=== PATIENT | female | born 1990 | race African-American/Black ===

== ENCOUNTER 2017-04-22 12:21 | Inpatient (IN) | payer OTHER ==
[~2017-04-22] VITALS: Ht 177.8 cm; Wt 97.1 kg
[~2017-04-22 12:21] MED LIST: ALBUTEROL INH; AMITRIPTYLINE H50 M2 PO; AZITHROMYCIN 2250 MG PO; AZITHROMYCIN500 MG PO; CLARITIN10 MG PO; CLEOCIN HCL150 MG PO; COMPACT COMPRE1 EACH MC; DAZIDOX20 MG PO; DOXYCYCLINE 10100 MG PO; DUONEB 2.5-0.5 M3 ML INH; FENTANYL PATCH75 MCG TP; HYDREA PO; HYDREA500 MG PO; INVANZ1 GM IV; KEFLEX500 MG PO; MEROPENEM IV; METHADONE HCL 110 M1 PO; MIRALAX17 GM PO; NORCO 10-325 T1 EACH PO; OXYCODONE HCL10 M1 PO; OXYCODONE HCL15 MG PO; OXYCONTIN20 M1 PO; PERCOCET 5-3251 EACH PO; PROTONIX40 MG PO; PROVENTIL HFA6.7 G1 INH; ZANTAC 150MG T150 MG PO; ZANTAC PO; ZOFRAN ODT4 MG DISSOLVE; ZPAK PO
[2017-04-22 12:23] VITALS: BP 130/83
[2017-04-22 13:26] LABS: ABSOLUTE RETIC COUNT 0.3012 10^6/uL; HEMATOCRIT 20.2 % (37.0-47.0); HEMOGLOBIN 7.2 gm/dL (12.0-15.0); MCH 31.9 pg (26.0-34.0); MCHC 35.9 g/dL (28.0-37.0); MCV 88.8 fL (80.0-100.0); OBSERVED RETIC COUNT 13.25 % (0.6-2.6); PLATELET COUNT 624 thou/uL (150-400); RBC 2.27 mil/uL (4.20-5.00); WBC 13.9 thou/uL (4.0-11.0)
[2017-04-22 13:27] LABS: MANUAL DIFF YES
[2017-04-22 13:30] LABS: CALCIUM 8.9 mg/dL (8.5-10.1); CREATININE 0.4 mg/dL (0.6-1.0); POTASSIUM 3.6 mmol/L (3.5-5.1)
[2017-04-22 13:51] LABS: ANISOCYTOSIS 1+; TOTAL CELL COUNT 100
[2017-04-22 16:56] VITALS: BP 118/68
[2017-04-22 19:55] VITALS: BP 115/67
[2017-04-23 04:00] VITALS: BP 126/58
[2017-04-23 04:47] LABS: MCH 32.3 pg (26.0-34.0); MCV 89.9 fL (80.0-100.0); RBC 2.04 mil/uL (4.20-5.00); RDW 21.3 % (10.5-14.5); WBC 14.1 thou/uL (4.0-11.0)
[2017-04-23 04:56] LABS: HEMATOCRIT 18.3 % (37.0-47.0); HEMOGLOBIN 6.6 gm/dL (12.0-15.0)
[2017-04-23 05:05] LABS: ALBUMIN 3.5 g/dL (3.4-5.0); CALCIUM 8.4 mg/dL (8.5-10.1); CREATININE 0.4 mg/dL (0.6-1.0); POTASSIUM 3.4 mmol/L (3.5-5.1); TOTAL BILIRUBIN 1.3 mg/dL (<0.1-1.0); TOTAL PROTEIN 7.2 g/dL (6.4-8.2)
[2017-04-23 09:01] VITALS: BP 126/69
[2017-04-23 17:02] VITALS: BP 118/69
[2017-04-23 19:45] VITALS: BP 126/85
[2017-04-24 07:22] LABS: ABSOLUTE NEUTROPHILS 3.6 thou/uL (1.4-8.2); BASOPHILS 1.4 % (0.0-2.0); EOSINOPHILS 15.1 % (0.0-3.0); LYMPHOCYTES 43.4 % (24.0-44.0); MCH 32.1 pg (26.0-34.0); MCHC 34.8 g/dL (28.0-37.0); MCV 92.4 fL (80.0-100.0); MONOCYTES 7.8 % (1.0-8.0); PLATELET COUNT 540 thou/uL (150-400); POLYS 32.3 % (36.0-66.0); RBC 2.06 mil/uL (4.20-5.00); RDW 20.3 % (10.5-14.5); WBC 11.2 thou/uL (4.0-11.0)
[2017-04-24 07:27] LABS: MANUAL DIFF NO
[2017-04-24 07:28] LABS: HEMOGLOBIN 6.6 gm/dL (12.0-15.0)
[2017-04-24 07:40] LABS: ALBUMIN 3.4 g/dL (3.4-5.0); CALCIUM 8.2 mg/dL (8.5-10.1); CREATININE 0.4 mg/dL (0.6-1.0); POTASSIUM 3.3 mmol/L (3.5-5.1)
[2017-04-24 08:33] VITALS: BP 121/78
[2017-04-24 16:00] VITALS: BP 125/80
[2017-04-24 20:10] VITALS: BP 126/81
[2017-04-25 04:05] VITALS: BP 122/80
[2017-04-25 06:02] LABS: MCH 32.7 pg (26.0-34.0); MCHC 36.5 g/dL (28.0-37.0); MCV 89.6 fL (80.0-100.0); RBC 1.9 mil/uL (4.20-5.00); RDW 21.2 % (10.5-14.5); WBC 11.2 thou/uL (4.0-11.0)
[2017-04-25 06:30] LABS: HEMOGLOBIN 6.2 gm/dL (12.0-15.0)
[2017-04-25 07:45] VITALS: BP 123/79
[2017-04-25 16:00] VITALS: BP 146/58
[2017-04-25 16:28] VITALS: BP 130/84; BP 138/85
[2017-04-25 21:01] VITALS: BP 131/85
[2017-04-26 05:22] LABS: HEMATOCRIT 20.8 % (37.0-47.0); HEMOGLOBIN 7.4 gm/dL (12.0-15.0); MCH 31.7 pg (26.0-34.0); MCHC 35.5 g/dL (28.0-37.0); MCV 89.3 fL (80.0-100.0); RBC 2.33 mil/uL (4.20-5.00); RDW 19.8 % (10.5-14.5); WBC 12.4 thou/uL (4.0-11.0)
[2017-04-26 05:32] VITALS: BP 114/62
[2017-04-26 08:28] VITALS: BP 114/71
[2017-04-26] MEDS ORDERED: HYDROCODONE-AP1 EAC6 PO (11:50)
[2017-04-26 11:59] VITALS: BP 114/71
== END 2017-04-26 16:39 | disposition home or self-care (01) | DRG 812 ==
LOC: ER 12:21 → EROBS 15:38 → 5S 15:38
PROVIDERS: Emergency Medicine; Hospitalist
PROC: 30233N1 Transfusion of Nonautologous Red Blood Cells into Peripheral Vein, Percutaneous Approach (ICD-10-PCS; principal; 2017-04-25)
DX: D57.00 Hb-SS disease with crisis, unspecified (principal); M87.9 Osteonecrosis, unspecified; G62.9 Polyneuropathy, unspecified; G89.29 Other chronic pain; J45.909 Unspecified asthma, uncomplicated; Z90.49 Acquired absence of other specified parts of digestive tract; Z88.6 Allergy status to analgesic agent; Z88.8 Allergy status to other drugs, medicaments and biological substances; Z88.1 Allergy status to other antibiotic agents
CPT/HCPCS: 10785

== ENCOUNTER 2017-08-25 23:54 | Emergency (ER) | payer OTHER ==
[~2017-08-25] VITALS: Ht 177.8 cm; Wt 93.4 kg
[~2017-08-25 23:54] MED LIST changes: +HYDROCODONE-AP1 EAC6 PO
[2017-08-26 01:01] LABS: URINE BILIRUBIN NEGATIVE (Negative); URINE BLOOD TRACE (Negative); URINE COLOR YELLOW; URINE GLUCOSE-RANDOM* NEGATIVE (Negative); URINE KETONES NEGATIVE (Negative); URINE LEUKOCYTES-REFLEX NEGATIVE (Negative); URINE PROTEIN (DIPSTICK) NEGATIVE (Negative)
[2017-08-26 01:02] LABS: MCH 31.2 pg (26.0-34.0); MCHC 36.7 g/dL (28.0-37.0); RBC 2.25 mil/uL (4.20-5.00); RDW 21.2 % (10.5-14.5); WBC 13.9 thou/uL (4.0-11.0)
[2017-08-26 01:06] LABS: HEMATOCRIT 19.2 % (37.0-47.0)
[2017-08-26 01:07] LABS: CALCIUM 8.7 mg/dL (8.5-10.1); CREATININE 0.5 mg/dL (0.6-1.0); POTASSIUM 3.7 mmol/L (3.5-5.1)
[2017-08-26 01:09] LABS: OBSERVED RETIC COUNT 8.83 % (0.6-2.6)
[2017-08-26] MEDS ORDERED: VITAMIN D1000 UNI1 PO (01:26)
[2017-08-26] MEDS ORDERED: VITAMIN B-12500 MCG PO (01:27)
[2017-08-26] MEDS ORDERED: HYDREA 500 MG500 M1 PO (01:28)
[2017-08-26] MEDS ORDERED: FOLIC ACID1 MG PO (01:28)
== END 2017-08-26 03:25 | disposition home or self-care (01) ==
LOC: ER 23:54
PROVIDERS: Emergency Medicine
DX: D57.00 Hb-SS disease with crisis, unspecified (principal); J45.909 Unspecified asthma, uncomplicated; G62.9 Polyneuropathy, unspecified; Z90.49 Acquired absence of other specified parts of digestive tract; Z88.1 Allergy status to other antibiotic agents; Z88.5 Allergy status to narcotic agent; Z88.0 Allergy status to penicillin; Z88.6 Allergy status to analgesic agent

== ENCOUNTER → 2017-09-07 | Outpatient (CLI) | payer OTHER ==
[~2017-09-07] MED LIST changes: +FOLIC ACID1 MG PO; +HYDREA 500 MG500 M1 PO; +VITAMIN B-12500 MCG PO; +VITAMIN D1000 UNI1 PO
--- NOTE | ~2017-09-07 | 2DMMODE ---
[facility] [place] [address] 2 D/M-MODE ECHOCARDIOGRAM Name: ISAIAH OREILLY Room [facility]: [facility] [id number] Admission: 09/07/17 Attend Phys: Aidan Vaughn, Discharge: Date of : 88 Date of Service: 09/07/17 1619 Report #: [id number] THIS REPORT FOR: //name// APPROVED REPORT Study performed: 09/07/2017 15:05:08 EXAM: Comprehensive 2D, Doppler, and color-flow Echocardiogram Patient Location: Out-Patient Room #: Echo lab Status: routine BSA: 2.11 HR: 104 bpm BP: 126/78 mmHg Other Information Study Quality: Good Indications Sickle Cell Anemia 2D Dimensions RVDd: 33.14 mm LVEF(%): 55.06 (>50%) IVSd: 11.03 (7-11mm) LVOT Diam: 20.38 (18-24mm) LVDd: 53.80 mm PWd: 10.80 (7-11mm) Ascending Ao: 32.06 (22-36mm) LVDs: 38.25 (25-40mm) Aortic Root: 26.89 mm IVC: 25.00 mm Harrington's LVEF: 55.06 % Volumes Left Atrial Volume (Systole) Single Plane 4CH: 74.96 mL Single Plane 2CH: 49.59 mL LA ESV Index: 32.00 mL/m2 Aortic Valve AoV Peak Hung.: 1.88 m/s AO Peak Gr.: 14.21 mmHg LVOT Max P.26 mmHg LVOT Max V: 1.15 m/s TIFFANIE Vmax: 1.98 cm2 Mitral Valve E/A Ratio: 1.3 MV Decel. Time: 137.33 ms MV E Max Hung.: 1.27 m/s [facility] [place] [address] 2 D/M-MODE ECHOCARDIOGRAM Name: ISAIAH OREILLY Room #: [facility] Rossana#: [id number] Admission: 09/07/17 Attend Phys: Aidan Vaughn, Discharge: Date of : 88 Date of Service: 09/07/17 1619 Report #: [id number] A Hung.: 0.95 m/s MV PHT: 39.83 ms IVRT: 69.20 ms Pulmonary Valve PV Peak Hugn.: 1.58 m/s PV Peak Gr.: 9.92 mmHg Pulmonary Vein P Vein S: 0.54 m/s P Vein A: 0.46 m/s P Vein D: 0.72 m/s P Vein A Dur.: 100.3 msec P Vein S/D Ratio: 0.75 Tricuspid Valve TR Peak Hung.: 3.94 m/s TR Peak Gr.: 62.00 mmHg PA Pressure: 77.00 mmHg Left Ventricle The left ventricle is normal size. There is normal left ventricular wall thickness. The left ventricular systolic function is normal. The left ventricular ejection fraction is within the normal range. LVEF is 55-60%. The left ventricular diastolic function is normal. Right Ventricle Right ventricle is grossly normal in size. The right ventricular systolic function is normal. Atria The left atrium size is normal. Right atrium is mildly dilated. Aortic Valve The aortic valve is normal in structure. No aortic regurgitation is present. There is no aortic valvular stenosis. Mitral Valve The mitral valve is normal in structure. Trace mitral regurgitation. No evidence of mitral valve stenosis. Tricuspid Valve The tricuspid valve is normal in structure. There is mild to moderate tricuspid regurgitation. Estimated PAP 77 mmHg. There is severe pulmonary hypertension. Pulmonic Valve The pulmonary valve appears normal in structure. Pulmonic valve [facility] [address] [place] [address] 2 D/M-MODE ECHOCARDIOGRAM Name: ISAIAH OREILLY Room #: REG KRISTEN Tracy#: [id number] Admission: 09/07/17 Attend Phys: Aidan Vaughn, Discharge: Date of : 88 Date of Service: 09/07/17 1619 Report #: [id number] velocities were increased with a peak gradient of 10 mmHg and a mean og 5 mmHg. There is no pulmonic valvular regurgitation. Great Vessels The aortic root is normal in size. The inferior vena cava is dilated with no inspiratory collapse. Pericardium Trace anterior pericardial effusion. <Conclusion> The left ventricle is normal size. LVEF is 55-60%. Right ventricle is grossly normal in size. The aortic valve is normal in structure. The mitral valve is normal in structure. Trace mitral regurgitation. The tricuspid valve is normal in structure. There is mild to moderate tricuspid regurgitation. Estimated PAP 77 mmHg. There is severe pulmonary hypertension. The pulmonary valve appears normal in structure. Pulmonic valve velocities were increased with a peak gradient of 10 mmHg and a mean og 5 mmHg. Trace anterior pericardial effusion. <ELECTRONICALLY SIGNED> By: Alex Stapleton MD 09/07/17 1619 18 18 Alex Stapleton MD /INF
== END ==
LOC: CV 09-04 11:03
DX: D57.00 Hb-SS disease with crisis, unspecified (principal)

== ENCOUNTER 2017-09-10 16:41 | Emergency (ER) | payer OTHER ==
[~2017-09-10] VITALS: Ht 177.8 cm; Wt 92.5 kg
== END 2017-09-10 21:04 | disposition home or self-care (01) ==
LOC: ER 16:41
DX: D57.00 Hb-SS disease with crisis, unspecified (principal); J45.909 Unspecified asthma, uncomplicated; G62.9 Polyneuropathy, unspecified; Z90.49 Acquired absence of other specified parts of digestive tract; Z88.1 Allergy status to other antibiotic agents; Z88.5 Allergy status to narcotic agent; Z88.0 Allergy status to penicillin; Z88.6 Allergy status to analgesic agent; Z88.8 Allergy status to other drugs, medicaments and biological substances

== ENCOUNTER 2018-01-19 17:41 | Emergency (ER) | payer OTHER ==
[~2018-01-19] VITALS: Ht 175.3 cm; Wt 93.4 kg
[2018-01-19 21:17] VITALS: BP 109/76
[2018-05-24] MEDS ORDERED: PROTONIX40 M2 PO (11:15)
[2018-05-27] MEDS ORDERED: FOLIC ACID 1 MG1 MG PO (13:19)
[2018-05-27] MEDS ORDERED: ERGOCALCIF50000 UNIT PO (13:20)
== END 2018-01-19 21:19 | disposition home or self-care (01) ==
LOC: ER 17:41
DX: D57.00 Hb-SS disease with crisis, unspecified (principal); J45.909 Unspecified asthma, uncomplicated; G62.9 Polyneuropathy, unspecified; Z88.5 Allergy status to narcotic agent; Z88.0 Allergy status to penicillin; Z88.6 Allergy status to analgesic agent; Z88.8 Allergy status to other drugs, medicaments and biological substances

== ENCOUNTER 2018-02-08 17:38 | Emergency (ER) | payer OTHER ==
[~2018-02-08] VITALS: Ht 165.1 cm; Wt 95.3 kg
[2018-02-08 22:11] VITALS: BP 132/68
[2018-05-24] MEDS ORDERED: PROTONIX40 M2 PO (11:15)
[2018-05-27] MEDS ORDERED: FOLIC ACID 1 MG1 MG PO (13:19)
[2018-05-27] MEDS ORDERED: ERGOCALCIF50000 UNIT PO (13:20)
== END 2018-02-08 22:09 | disposition home or self-care (01) ==
LOC: ER 17:38
DX: D57.1 Sickle-cell disease without crisis (principal); J45.909 Unspecified asthma, uncomplicated; Z88.1 Allergy status to other antibiotic agents; Z88.0 Allergy status to penicillin; Z88.5 Allergy status to narcotic agent

== ENCOUNTER 2018-07-02 11:55 | Emergency (ER) | payer OTHER ==
[~2018-07-02] VITALS: Ht 172.7 cm; Wt 79.4 kg
[~2018-07-02 11:55] MED LIST changes: +ERGOCALCIF50000 UNIT PO; +FOLIC ACID 1 MG1 MG PO; +PROTONIX40 M2 PO
[2018-07-02 12:20] LABS: URINE BILIRUBIN NEGATIVE (Negative); URINE BLOOD NEGATIVE (Negative); URINE CLARITY CLEAR; URINE COLOR YELLOW; URINE GLUCOSE-RANDOM* NEGATIVE (Negative); URINE KETONES NEGATIVE (Negative); URINE LEUKOCYTES NEGATIVE (Negative); URINE NITRITE NEGATIVE (Negative); URINE PROTEIN (DIPSTICK) NEGATIVE (Negative); URINE SPECIFIC GRAVITY <= 1.005 (1.005-1.035)
[2018-07-02 13:01] LABS: ABSOLUTE RETIC COUNT 0.2036 10^6/uL; HEMATOCRIT 21.4 % (37.0-47.0); HEMOGLOBIN 7.5 gm/dL (12.0-15.0); MCHC 35.2 g/dL (28.0-37.0); MCV 91.1 fL (80.0-100.0); OBSERVED RETIC COUNT 8.66 % (0.6-2.6); PLATELET COUNT 503 thou/uL (150-400); RBC 2.35 mil/uL (4.20-5.00); RDW 18.4 % (10.5-14.5); WBC 10.1 thou/uL (4.0-11.0)
[2018-07-02 13:07] LABS: CALCIUM 8.2 mg/dL (8.5-10.1); CREATININE 0.6 mg/dL (0.6-1.0); POTASSIUM 3.4 mmol/L (3.5-5.1)
[2018-07-02 13:13] LABS: ALBUMIN 3.5 g/dL (3.4-5.0); TOTAL BILIRUBIN 6.1 mg/dL (<0.1-1.0); TOTAL PROTEIN 7.9 g/dL (6.4-8.2)
[2018-07-02 13:18] LABS: ABSOLUTE NEUTROPHILS 8.7 thou/uL (1.4-8.2); ANISOCYTOSIS 2+; HYPOCHROMASIA 2+; METAMYELOCYTES 1 %; PLATELET ESTIMATE INCREASED; POLYCHROMASIA 1+
[2018-07-02] MEDS ORDERED: AZITHROMYCIN 2250 MG PO (15:30)
== END 2018-07-02 15:48 | disposition home or self-care (01) ==
LOC: ER 11:55
PROVIDERS: Physician Assistant
DX: D57.00 Hb-SS disease with crisis, unspecified (principal); G89.29 Other chronic pain; J18.9 Pneumonia, unspecified organism; J45.909 Unspecified asthma, uncomplicated; G62.9 Polyneuropathy, unspecified; Z86.2 Personal history of diseases of the blood and blood-forming organs and certain disorders involving the immune mechanism; Z88.1 Allergy status to other antibiotic agents; Z88.8 Allergy status to other drugs, medicaments and biological substances; Z88.5 Allergy status to narcotic agent; Z88.4 Allergy status to anesthetic agent; Z88.0 Allergy status to penicillin; Z88.6 Allergy status to analgesic agent; Z90.49 Acquired absence of other specified parts of digestive tract